=== PATIENT | female | born 1985 | race Caucasian/White ===

== ENCOUNTER 2020-03-21 16:24 | Emergency (ER) | payer OTHER ==
[~2020-03-21] VITALS: Ht 170.2 cm; Wt 92.5 kg
== END 2020-03-21 22:28 | disposition home or self-care (01) ==
LOC: ER 16:24
DX: R10.32 Left lower quadrant pain (principal); R10.12 Left upper quadrant pain

== ENCOUNTER 2020-05-30 20:05 | Emergency (ER) | payer OTHER ==
[~2020-05-30] VITALS: Ht 170.2 cm; Wt 92.5 kg
== END 2020-05-31 00:26 | disposition home or self-care (01) ==
LOC: ER 20:05
DX: B34.9 Viral infection, unspecified (principal); Z03.818 Encounter for observation for suspected exposure to other biological agents ruled out; R07.0 Pain in throat; R51 Headache; R50.9 Fever, unspecified

== ENCOUNTER 2021-01-29 21:37 | Emergency (ER) | payer OTHER ==
[~2021-01-29] VITALS: Ht 170.2 cm; Wt 103.9 kg
[2021-01-29] MEDS ORDERED: AUGMENTIN125 MG/5 M (21:59)
[2021-01-30] MEDS ORDERED: BACTRIM DS TAB1 EACH PO (01:30)
== END 2021-01-30 01:37 | disposition home or self-care (01) ==
LOC: ER 21:37
DX: L02.416 Cutaneous abscess of left lower limb (principal); L03.116 Cellulitis of left lower limb; B95.61 Methicillin susceptible Staphylococcus aureus infection as the cause of diseases classified elsewhere

== ENCOUNTER 2021-10-31 20:01 | Emergency (ER) | payer OTHER ==
[~2021-10-31] VITALS: Ht 167.6 cm; Wt 95.3 kg
[~2021-10-31 20:01] MED LIST: AUGMENTIN125 MG/5 M; BACTRIM DS TAB1 EACH PO
== END 2021-11-01 01:26 | disposition home or self-care (01) ==
LOC: ER 20:01
DX: J02.8 Acute pharyngitis due to other specified organisms (principal); B96.0 Mycoplasma pneumoniae [M. pneumoniae] as the cause of diseases classified elsewhere; B34.9 Viral infection, unspecified